=== PATIENT | male | born 1970 | race Caucasian/White ===

== ENCOUNTER 2016-08-02 19:06 | Emergency (ER) | payer OTHER ==
[~2016-08-02] VITALS: Ht 177.8 cm; Wt 105.0 kg
[~2016-08-02 19:06] MED LIST: COUMADIN7.5 MG PO; GABAPENTIN800 MG PO; KEPPRA750 MG PO; LEVETIRACETAM750 MG PO; NEURONTIN800 MG PO; RISPERDAL1 MG PO; ROCEPHIN1 GM/50 ML IV; SENNA8.6 MG PO; SYNTHROID75 MCG PO
[2016-08-02 19:59] LABS: EOSINOPHIL (%) 2.6 % (0-5); EOSINOPHIL COUNT 0.2 K/uL (0-0.3); IMMATURE GRANULOCYTE (%) 0.3 % (0.0-0.7); IMMATURE GRANULOCYTE COUNT 0.2 K/uL; MCH 30.3 PG (29.0-34.0); MCHC 33.7 G/DL (30.0-36.0); MCV 89.8 FL (86-99); MEAN PLAT.VOLUME 10.9 uM^3 (9.0-12.4); MONOCYTE (%) 10.8 % (3-12); MONOCYTE COUNT 0.7 K/uL (0-0.8); NEUTROPHIL (%) 56.5 % (45-76); NEUTROPHIL COUNT 3.9 K/uL (1.8-6.4); PLATELET COUNT 147 K/uL (156-360); RBC DIS.WIDTH-CV 14.4 % (11.8-14.6); RBC DIS.WIDTH-SD 46.2 % (39-53); RED BLOOD COUNT 4.23 M/uL (4.00-5.50); WHITE BLOOD COUNT 6.9 K/uL (4.1-10.2)
[2016-08-02 20:08] LABS: CHLORIDE 107 mEq/L (99-109); POTASSIUM 3.9 mEq/L (3.7-5.4); SODIUM 141 mEq/L (136-147)
[2016-08-02 20:09] LABS: GLUCOSE 107 mg/dL (70-99)
[2016-08-02 20:11] LABS: ANION GAP 10 MEQ/L (2-14)
[2016-08-02 20:13] LABS: GFR ESTIMATE (CALCULATED) > 59 mL/min/
[2016-08-02 20:14] LABS: UREA NITROGEN (BUN) 13 mg/dL (9-23)
[2016-08-02 21:04] LABS: ADD MIUA? NO; BILIRUBIN NEGATIVE; BLOOD NEGATIVE; COLOR YELLOW ((YELLOW)); GLUCOSE (STRIP) NEGATIVE; KETONES NEGATIVE; LEUKOCYTES NEGATIVE; NITRITE NEGATIVE; PROTEIN (STRIP) NEGATIVE; UCUL ADDED? NO; UROBILINOGEN 0.2 MG/DL (0.2-1.0)
[2016-08-02] MEDS ORDERED: ANTIVERT25 MG PO (21:24)
[2016-08-02 21:57] VITALS: BP 125/89
== END 2016-08-02 21:58 ==
LOC: EME → EDBD 19:06 → EME 19:06
PROVIDERS: Emergency Medicine
DX: R42 Dizziness and giddiness (principal); R10.9 Unspecified abdominal pain; E03.9 Hypothyroidism, unspecified; Z79.01 Long term (current) use of anticoagulants
CPT/HCPCS: 70450; 71010; 80048; 81003; 85025; 87040; 93005; 99281; 99284